=== PATIENT | female | born 1965 | race Caucasian/White ===

== ENCOUNTER 2017-02-15 12:46 | Day surgery (SDC) | payer BC ==
[~2017-02-15] VITALS: Ht 165.1 cm; Wt 64.7 kg
[2017-02-15 14:37] VITALS: Ht 165.1 cm; Wt 64.7 kg
[2017-02-15] MEDS ORDERED: HYDR-902 PO (14:47)
[2017-02-15] MEDS ORDERED: PRAV20TA63 PO (14:47)
[2017-02-15] MEDS ORDERED: LOSA25TA5 PO (14:47)
[2017-02-15] MEDS ORDERED: HYDR5TAB PO (14:47)
[2017-02-15] MEDS ORDERED: AMIT25TA9 PO (14:47)
[2017-02-15 15:09] VITALS: BP 140/95; PULSE 95; RESP 15
[2017-02-15] MEDS ORDERED: LIDOCAINE 2% (SDV) 5 ML INJ ONE (16:24)
[2017-02-15] MEDS ORDERED: PROPOFOL 60 ML ONE (16:24)
[2017-02-15] MEDS ORDERED: FENTAnyl 50 MCG/ML VIAL ONE (16:56)
[2017-02-15 17:25] VITALS: BP 138/90; PULSE 82; RESP 16
--- NOTE | 2017-02-16 03:37 | GILP ---
DATE OF PROCEDURE: 02/15/2017 NAME OF PROCEDURE: Colonoscopy with biopsies. SURGEON: Jose Cotton MD. PREMEDICATION: Monitored anesthesia care by anesthesiologist. INSTRUMENT USED: Olympus colonoscope. PREPARATION: Adequate. TECHNIQUE: After informed consent, with the patient/relatives understanding the procedure, its indic ations potential risks and complications, including but not limited to: allergic reaction, bleeding, perforation, infection, missed lesions and after all pertinent questions were answered to the patie nt's satisfaction, the patient/relatives signed the witnessed informed consent. Following this, premedication was administered slowly IV push by under careful cardiovascular and re spiratory monitoring with pulse oximetry, automatic blood pressure and landcare officer. Once the sedativ e effect was achieved, the patient was placed in the left lateral decubitus position, digital rectal examination was performed. The colonoscope was then introduced and advanced under visual control th roughout all segments of the colon including: the rectum, sigmoid, descending colon, splenic flexure , transverse colon, hepatic flexure, ascending colon and finally reaching the cecum which was clearl y identified by transillumination, finger indentation and the ileocecal valve. Careful examination o f the mucosa of the lower gastrointestinal tract both on insertion as well as withdrawal of the inst rument disclosed the following findings: Rectal Examination: No evidence of perirectal disease, no masses. Colonic Mucosa: The colonic mucosa is unremarkable with the exception of erythema and edema and subm ucosal hemorrhagic changes in the area of the rectum which extend approximately 6 cm. Biopsies were obtained. There is diverticulosis in the left side of the colon of a mild degree. The remainder of the colonic mucosa is unremarkable. The ileocecal valve was clearly identified and appears unremarkable with exception of moderate sized internal hemorrhoids. The instrument was then withdrawn, the patient tolerated the procedure well and was transferred out of the Endoscopy Suite awake and in good condition to continue recovery under observation. IMPRESSION: 1. Questionable proctitis versus preparation artifact. Biopsies obtained. 2. Diverticulosis, left side of the colon. 3. Moderate size internal hemorrhoids. PLAN: I will review pathology as soon as available. Further recommendations will depend on the pat ient's clinical course as well as review of pathology. Annual Hemoccult stool testing is recommende d and screening colonoscopy in 10 years is recommended as well. Dictated By: JOSE COTTON MS/YI Conf#: [id number] DID#: [id number] CC: JOSE COTTON;*[facility]*
== END 2017-02-15 18:38 | disposition home or self-care (01) ==
LOC: GIL 12:46
PROVIDERS: ATTEND Internal Medicine Gastroenterology
DX: Z12.11 Encounter for screening for malignant neoplasm of colon (principal); K57.90 Diverticulosis of intestine, part unspecified, without perforation or abscess without bleeding; K64.8 Other hemorrhoids; I10 Essential (primary) hypertension; E78.5 Hyperlipidemia, unspecified
CPT/HCPCS: 45380; 88305; J3010; Z7610